=== PATIENT | female | born 1990 | race Caucasian/White ===

== ENCOUNTER 2019-06-21 17:57 | Emergency (ER) | payer OTHER ==
[~2019-06-21] VITALS: Ht 177.8 cm; Wt 83.9 kg
--- OUTSIDE RECORDS SUMMARY | ~2019-06-21 | XMS | Clinical Summary ---
Demographics + + + | Address | [address] | | | [place] [address] | + + + | Home Phone | | + + + | Preferred Language | Unknown | + + + | Marital Status | Unknown | + + + | Mu-Ism Affiliation | Unknown | + + + | Race | Unknown | + + + | Ethnic Group | Unknown | + + + Author + + + | Author | [facility] | | | and [place] | + + + | Organization | [facility] | | | and [place] | + + + | Address | Unknown | + + + | Phone | Unavailable | + + + Support + + +---------+ + | Name | Relationship | Address | Phone | + + +---------+ + | DanielsCarolyn | ECON | Unknown | | + + +---------+ + Care Team Providers + +------+ + | Care Laundry Assistant Name | Role | Phone | + +------+ + | Pcp, Prov Inactive | PCP | | + +------+ + Allergies No Known Allergies Medications + + + +---------+------+------+-------+ | Medication | Sig | Dispensed | Refills | Star | End | Statu | | | | | | t | Date | s | | | | | | Date | | | + + + +---------+------+------+-------+ | | Take 1 tablet by | 30 | 0 | 03/2 | | Activ | | doxylamine-pyridoxin | mouth nightly. | tablet | | 3/20 | | e | | e (BONJESTA) 20-20 | | | | 19 | | | | mg per ER tablet | | | | | | | + + + +---------+------+------+-------+ | vitamin | Take 1 capsule by | 30 | 0 | 03/2 | | Activ | | (CITRANATAL HARMONY) | mouth Daily. | capsule | | 3/20 | | e | | 27-1-260 mg capsule | | | | 19 | | | + + + +---------+------+------+-------+ Active Problems + + + | Problem | Noted Date | + + + | Chronic back pain thoracic and lumbar | 02/16/2015 | + + + | Paresthesias | 02/16/2015 | + + + | Myalgia | 02/16/2015 | + + + | Chronic narcotic dependence | 02/16/2015 | + + + + + + | | Comments | + + + | Yes | | + + + Family History + + +------+ + | Medical History | Relation | Name | Comments | + + +------+ + | Diabetes | Mother | | | + + +------+ + | Heart disease | Mother | | | + + +------+ + | High blood pressure | Mother | | | + + +------+ + | Stroke | Mother | | | + + +------+ + + +------+--------+ + | Relation | Name | Status | Comments | + +------+--------+ + | Mother | | | | + +------+--------+ + Social History + + + +--------+ + | Tobacco Use | Types | Packs/Day | Years | Date | | | | | Used | | + + + +--------+ + | Former Smoker | Cigarettes | 0.5 | 7 | Started: 09/22/2012 | + + + +--------+ + + +---+---+---+ | Smokeless Tobacco: | | | | | Never Used | | | | + +---+---+---+ + + +---------+ + | Alcohol Use | Drinks/We | oz/Week | Comments | | | ek | | | + + +---------+ + | No | | | | + + +---------+ + + + + | | Comments | + + + | Yes | | + + + + + + | Sex Assigned at | Date Recorded | | | | + + + | Not on file | | + + + + + + + | Job Start Date | Occupation | Industry | + + + + | Not on file | Not on file | Not on file | + + + + + + + + | Travel History | Travel Start | Travel End | + + + + + + | No recent travel history available. | + + Last Filed Vital Signs + + + + | Vital Sign | Reading | Time Taken | + + + + | Blood Pressure | 131/80 | 12/12/2018 0057 PDT | + + + + | Pulse | 87 | 12/12/2018105 PDT | + + + + | Temperature | 36.4 C (97.6 F) | 12/12/201856 PDT | + + + + | Respiratory Rate | 16 | 12/12/201856 PDT | + + + + | Oxygen Saturation | 100% | 12/12/2018105 PDT | + + + + | Inhaled Oxygen | - | - | | Concentration | | | + + + + | Weight | 65.8 kg (145 lb) | 12/12/201856 PDT | + + + + | Height | 177.8 cm (5' 10") | 12/12/201856 PDT | + + + + | Body Mass Index | 20.81 | 12/12/201856 PDT | + + + + Plan of Treatment + + + + + | Health Maintenance | Due Date | Last Done | Comments | + + + + + | Vaccine: | | | | | Dtap/Tdap/Td (1 - | 1 | | | | Tdap) | | | | + + + + + | Cervical Cancer | | | | | Screening (Pap) | 3 | | | + + + + + | Vaccine: Influenza | | | | | (#1) | 9 | | | + + + + + Results Not on filefrom Last 3 Months Insurance + +--------+ +--------+ +---------+--------+ | Payer | Benefi | Subscriber | Effect | Phone | Address | Type | | | t Plan | ID | selene | | | | | | / | | Dates | | | | | | Group | | | | | | + +--------+ +--------+ +---------+--------+ | [employer] | [employer] | [id number] | | [phone] | | Medica | | MEDICAID HMO | HEALTH | | 015-Pr | 1 | | id | | | MDCD | | esent | | | | | | [place] | | | | | | + +--------+ +--------+ +---------+--------+ + +--------+ +--------+ + + | Guarantor Name | Accoun | Relation to | Date | Phone | Billing Address | | | t Type | Patient | of | | | | | | | | | | + +--------+ +--------+ + + | Kalie Guevara | Person | Self [birth year] | [address] | | | [place] | | 1991 | [phone] | [place], [place] | | | david | | | [address] (Home) | [address] | + +--------+ +--------+ + + Advance Directives Patient has advance care planning documents on file. For more information, please contact:[facility] [place] [address]
--- OUTSIDE RECORDS SUMMARY | ~2019-06-21 | XMS | Clinical Summary ---
Demographics + + + | Address | [address] | | | [place] [address] | + + + | Home Phone | | + + + | Preferred Language | Unknown | + + + | Marital Status | Unknown | + + + | Pentecostalism Affiliation | Unknown | + + + | Race | Unknown | + + + | Ethnic Group | Unknown | + + + Author + + + | Author | [facility] | | | and [place] | + + + | Organization | [facility] | | | and [...] Team Providers + +------+ + | Care Head Knitting Machine Fixer Name | Role | Phone | + [...] | [employer] | MOD[employer] | [id number] | | [phone] | | Medica | [...] Person | Self | [birth year] | [address] | | | [place] | | 1991 | [phone] | [place], [place] | | | david | | | 3 (Home) | [address] | + +--------+ +--------+ + + Advance Directives Patient has advance care planning documents on file. For more information, please contact:[facility] [place] [address]
[~2019-06-21 17:57] MED LIST: NAPROXEN500 MG PO; TRAMADOL HCL50 MG PO
== END 2019-06-21 19:46 | disposition home or self-care (01) ==
LOC: ED 17:57
DX: L08.9 Local infection of the skin and subcutaneous tissue, unspecified (principal); Z79.899 Other long term (current) drug therapy
CPT/HCPCS: 99283

== ENCOUNTER 2019-07-20 14:06 | Inpatient (IN) | payer OTHER ==
--- NOTE | ~2019-07-20 | OR ---
[facility] [address] [place], [place] [address] Draft DATE OF OPERATION: 07/22/2019 SURGEON: Jason Jurado MD HAND STRIPER: Burton. PREOPERATIVE DIAGNOSIS: intolerance to labor. POSTOPERATIVE DIAGNOSIS: intolerance to labor, delivered. PROCEDURE: Primary section with low segment transverse uterine incision. ANESTHESIA: Epidural. ESTIMATED BLOOD LOSS: 700 mL. DRAINS: Fermin catheter. INDICATIONS AND FINDINGS: The patient is a 28-year-old female, 1, para 0, admitted at 39 and 2/7th weeks for elective induction. She had a prolonged slow labor. She did have a total of three episodes of prolonged deceleration interspersed with good reactivity, variability, and accelerations. However, with the 3rd episode, it was felt that the baby should be delivered immediately and was recommended. She was consented, taken to the operating room. She did have heart tones recovered prior to beginning the surgery. She was able to have her surgery with the epidural as it did have time to set up prior to the . She was delivered of a little boy via lower segment transverse uterine incision from the ROT position with Apgars of 9 and 9 and weight of 8 pounds 15 ounces. There was a true knot in the cord. The uterus, tubes, ovaries, and placenta otherwise appeared normal. There was light meconium at delivery. DESCRIPTION OF PROCEDURE: The patient was prepped and draped in the supine position. A Pfannenstiel skin incision PATIENT NAME: CHILO CANNON OPERATIVE REPORT DATE OF : [birth year] REPORT #: [id number] PHYSICIAN: JASON JURADO MD PCP: JASON JURADO MD REPORT IS CONFIDENTIAL AND NOT TO BE RELEASED WITHOUT AUTHORIZATION [facility] [address] [place], [place] [address] Draft was made and the incision was extended down through the fascia. The incision was extended laterally. The inferior and superior fascial flaps were then created. The muscles were bluntly divided and the peritoneum entered bluntly and the incision extended bluntly. The Cody retractor was placed. The uterine incision was made at the upper aspect of the peritoneal reflection with delivery of the baby with the above findings and handed out to the pediatric staff in attendance. Cord blood was obtained as well as the cord for gases. The placenta was expressed. The uterus explored with a lap tape assuring no remaining fragments. The edges of the incision were identified and the uterus closed in 2 layers. The first layer was a running locking stitch and the second was a vertical imbricating stitch of #0 Monocryl. Retractors removed the peritoneum identified. Good hemostasis was noted at the incision. Then a cell graft was then laid over the lower segment to aid in healing. The peritoneum was then closed with a running suture of 3-0 Vicryl. The muscles were brought together with interrupted sutures of 0 Vicryl. Bleeding points were controlled with cautery. There was a webbing seamer pound net at the upper left side of the fascia and this required a [id number]-xi-behuk suture with 0 Vicryl as well for control of bleeding. Following this, this layer was irrigated and inspected, and good hemostasis was noted. ACell powder was sprinkled over the muscles to aid in healing. The fascia was then closed from each angle to the midline with a running suture of 0 Vicryl. The subcu area was irrigated and bleeding points controlled with cautery. The deep space was reapproximated with interrupted sutures of 3-0 Vicryl. The skin was closed with natalie. All sponge and needle counts were correct. She tolerated the procedure well and was taken to the recovery room in good condition. MD NAYELY Pittman/JUAREZ /[id number] cc: Dr. Burton Copies: ~ PATIENT NAME: CHILO CANNON OPERATIVE REPORT DATE OF : [birth year] REPORT #: [id number] PHYSICIAN: JASON JURADO MD PCP: JASON JURADO MD REPORT IS CONFIDENTIAL AND NOT TO BE RELEASED WITHOUT AUTHORIZATION
--- NOTE | 2019-07-21 11:23 | PR ---
[facility] [address] [facility] [place], [place] [address] Signed Progress Notes IP Datetime Report Generated by CPN: 07/21/2019 11:23 PROGRESS NOTES: [id number] Impression: Normal progression of labor Procedures: Artificial ROM; Sterile Vag Exam Plan: Continue present management Informed Consent Obtain: Vaginal Delivery; Induction of Labor; Risks, Benefits and Alternatives Discussed VITAL SIGNS: [id number] Vital Signs: Reviewed VS Notable Details: intermittent mild HTN EXAM: [id number] Dilatation: 3.0 Effacement: 75 Station: -2 Uterine Contractions: q 1 to 5 min MEMBRANES: [id number] Pooling: Negative Membrane Status: Intact ROM Note: AROM with large amount of clear fluid seen Comments: Progressing. Will continue. Fetus A: [id number] FHR Baseline: 140 Variability: Moderate 6-25bpm Accelerations: 15X15 Decelerations: None FHR Category: Category I Presentation: Vertex Comments on Fetus A: No evidence of metabolic acidosis Fetus B: [id number] Signing Physician: Alyson Jurado MD Copies: ~ *Electronically Signed* 07/21/19 1123 ALYSON JURADO MD PATIENT NAME: CHILO CANNON PROGRESS NOTE DATE OF : [birth year] PHYSICIAN: ALYSON JURADO MD RPT #: [id number] REPORT IS CONFIDENTIAL AND NOT TO BE RELEASED WITHOUT AUTHORIZATION
--- NOTE | 2019-07-21 15:37 | PR ---
[facility] [address] [place], [place] [address] Signed Progress Notes IP Datetime Report Generated by CPN: 07/21/2019 15:37 PROGRESS NOTES: [id number] Impression: Slow Progression of Labor Procedures: Intrauterine Pressure Catheter; Sterile Vag Exam Plan: Continue present management Informed Consent Obtain: Vaginal Delivery; Induction of Labor; Risks, Benefits and Alternatives Discussed VITAL SIGNS: [id number] Vital Signs: Reviewed VS Notable Details: intermittent mild HTN EXAM: [id number] Dilatation: 3.5 Effacement: 80 Station: -2 Uterine Contractions: q 2 to 4 min MEMBRANES: [id number] Pooling: Negative Membrane Status: Intact ROM Note: AROM with large amount of clear fluid seen Comments: Slow progress. Will place IUPC as suspect contractions are inadequate and pit augment may be needed. Fetus A: [id number] FHR Baseline: 140 Variability: Moderate 6-25bpm Accelerations: 15X15 Decelerations: None FHR Category: Category I Presentation: Vertex Comments on Fetus A: No evidence of metabolic acidosis Fetus B: [id number] Signing Physician: Alyson Jurado MD Copies: ~ *Electronically Signed* 07/21/19 1537 ALYSON JURADO MD PATIENT NAME: CHILO CANNON PROGRESS NOTE DATE OF : [birth year] PHYSICIAN: ALYSON JURADO MD RPT #: [id number] REPORT IS CONFIDENTIAL AND NOT TO BE RELEASED WITHOUT AUTHORIZATION
--- NOTE | 2019-07-21 22:50 | PR ---
[facility] [address] [place], [place] [address] Signed Progress Notes IP Datetime Report Generated by CPN: 07/21/2019 22:50 PROGRESS NOTES: [id number] Impression: Slow Progression of Labor Procedures: Scalp Electrode; Sterile Vag Exam Plan: Continue present management Informed Consent Obtain: Vaginal Delivery; Induction of Labor; Risks, Benefits and Alternatives Discussed VITAL SIGNS: [id number] Vital Signs: Reviewed; Within Normal Limits VS Notable Details: intermittent mild HTN EXAM: [id number] Dilatation: 5.0 Effacement: 100 Station: -2 Uterine Contractions: q 2 to 4 min MEMBRANES: [id number] Pooling: Negative Membrane Status: Intact ROM Note: AROM with large amount of clear fluid seen Comments: Some progression in labor but recent prolonged decel. Will allow baby to continue to recover and will restart pit in approx 15 min assuming continued reassuring status. Fetus A: [id number] FHR Baseline: 120 Variability: Moderate 6-25bpm Accelerations: 10X10 Decelerations: Prolonged FHR Category: Category II Presentation: Vertex Comments on Fetus A: recent prolonged decel but now appears to be recovering Fetus B: [id number] Signing Physician: Alyson Jurado MD Copies: ~ *Electronically Signed* 07/21/19 1381 ALYSON JURADO MD PATIENT NAME: CHILO CANNON PROGRESS NOTE DATE OF : [birth year] PHYSICIAN: ALYSON JURADO MD RPT #: [id number] REPORT IS CONFIDENTIAL AND NOT TO BE RELEASED WITHOUT AUTHORIZATION
--- NOTE | 2019-07-22 01:42 | PR ---
[facility] [address] [place], [place] [address] Signed Progress Notes IP Datetime Report Generated by ERIKA: 07/22/2019 01:42 PROGRESS NOTES: [id number] Impression: Non-reassuring heart rate; Slow Progression of Labor Procedures: Sterile Vag Exam Plan: Continue present management Informed Consent Obtain: Vaginal Delivery; Induction of Labor; Risks, Benefits and Alternatives Discussed VITAL SIGNS: [id number] Vital Signs: Reviewed; Within Normal Limits VS Notable Details: intermittent mild HTN EXAM: [id number] Dilatation: 7.0 Effacement: 90 Station: -2 Uterine Contractions: q 3 to 4 min (off pit) MEMBRANES: [id number] Pooling: Negative Membrane Status: Intact ROM Note: AROM with large amount of clear fluid seen Comments: Progressing but now with 2nd prolonged decel. These have resolved with position changes, stopping pit, etc though this one took longer to recover than prior episode. Discussed C/S if this were to occur again. Pt requested epidural be turned down and this was done per her request though this is unrelated to her decels. She has been informed that this may allow her labor pain to recur. Fetus A: [id number] FHR Baseline: 115 Variability: Moderate 6-25bpm Accelerations: 15X15 Decelerations: Prolonged FHR Category: Category II Presentation: Vertex Comments on Fetus A: prolonged decel but resolving with changes in position, stopping pit. Will require continued close observation Fetus B: [id number] Signing Physician: Jason Jurado MD *Electronically Signed* 07/22/19 0142 JASON JURADO MD PATIENT NAME: CHILO CANNON PROGRESS NOTE DATE OF : [birth year] PHYSICIAN: JASON JURADO MD RPT #: [id number] REPORT IS CONFIDENTIAL AND NOT TO BE RELEASED WITHOUT AUTHORIZATION [address] [facility] [place], [place] [address] Signed Copies: ~ *Electronically Signed* 07/22/19 0142 JASON JURADO MD PATIENT NAME: CHILO CANNON PROGRESS NOTE DATE OF : [birth year] PHYSICIAN: JASON JURADO MD RPT #: [id number] REPORT IS CONFIDENTIAL AND NOT TO BE RELEASED WITHOUT AUTHORIZATION
--- NOTE | 2019-07-22 02:12 | PR ---
[facility] [address] [place], [place] [address] Signed Progress Notes IP Datetime Report Generated by CPN: 07/22/2019 02:12 PROGRESS NOTES: [id number] Impression: Reassuring heart rate Procedures: Sterile Vag Exam Plan: Continue present management Informed Consent Obtain: Vaginal Delivery; Induction of Labor; Risks, Benefits and Alternatives Discussed VITAL SIGNS: [id number] Vital Signs: Reviewed; Within Normal Limits VS Notable Details: intermittent mild HTN EXAM: [id number] Dilatation: 7.0 Effacement: 90 Station: -2 Uterine Contractions: q 3 to 4 min, mild MEMBRANES: [id number] Pooling: Negative Membrane Status: Intact ROM Note: AROM with large amount of clear fluid seen Comments: FHTs are reasssuring at this time. Will continue close observation. Fetus A: [id number] FHR Baseline: 130 Variability: Moderate 6-25bpm Accelerations: 15X15 Decelerations: None FHR Category: Category I Presentation: Vertex Comments on Fetus A: No evidence of metabolic acidosis at this time Fetus B: [id number] Signing Physician: Alyson Jurado MD Copies: ~ *Electronically Signed* 07/22/19 021 ALYSON JURADO MD PATIENT NAME: CHILO CANNON PROGRESS NOTE DATE OF : [birth year] PHYSICIAN: ALYSON JURADO MD RPT #: [id number] REPORT IS CONFIDENTIAL AND NOT TO BE RELEASED WITHOUT AUTHORIZATION
--- NOTE | 2019-07-22 09:22 | PR ---
[facility] [address] [facility] [place] [address] Signed Progress Notes IP Datetime Report Generated by CPN: 07/22/2019 09:22 PROGRESS NOTES: [id number] Impression: Non-reassuring heart rate Procedures: Sterile Vag Exam Plan: Deliver- Section Informed Consent Obtain: Section Delivery VITAL SIGNS: [id number] Vital Signs: Reviewed; Within Normal Limits VS Notable Details: intermittent mild HTN EXAM: [id number] Dilatation: 9.0 Effacement: 90 Station: -1 Uterine Contractions: q 3 to 4 min, mild MEMBRANES: [id number] Pooling: Negative Membrane Status: Intact ROM Note: AROM with large amount of clear fluid seen Comments: LE secondary to pt status. Recurrent prolonged decel. Discussed with pt and recommend emergency C/S. Will move to [place] now and deliver william. Fetus A: [id number] FHR Baseline: 130 Variability: Moderate 6-25bpm Accelerations: 15X15 Decelerations: Prolonged FHR Category: Category II Presentation: Vertex Comments on Fetus A: recurrent prolonged decel Fetus B: [id number] Signing Physician: Alyson Jurado MD Copies: ~ *Electronically Signed* 07/22/19921 ALYSON JURADO MD PATIENT NAME: CHILO CANNON PROGRESS NOTE DATE OF : [birth year] PHYSICIAN: ALYSON JURADO MD RPT #: [id number] REPORT IS CONFIDENTIAL AND NOT TO BE RELEASED WITHOUT AUTHORIZATION
--- NOTE | 2019-07-22 09:24 | NUR ---
07/22/19 0924 Elizbaeth Kruger 0974-PATIENT ARRIVED TO ROOM 106 PACU AWAKE ON RA. RR EVEN.SR DENIES PAIN REPORTS A LITTLE NAUSEA BUT GETTING BETTER. FUNDUS MIDLINE FIRM LIGHT RUBRA DRAINAGE ON ANNIA PAD. IV TO RIGHT ARM CDI INFUSING WITH 20 PITOCIN LR. ORDER TO GET PORTABLE ABDOMINAL XRAY
--- NOTE | 2019-07-23 08:15 | PR ---
[facility] [address] [facility] [place], [place] [address] Signed PP Progress Notes Datetime Report Generated by ERIKA: 07/23/2019 08:15 SUBJECTIVE: [id number] Pain: Within normal limits Nausea/Vomiting: Denies Flatus: No Vital Signs: [id number] Vital Signs: Reviewed; Within Normal Limits EXAM: [id number] Cardiovascular: Normal Respiratory: Normal Abdomen/Uterus: Abnormal Lochia: Normal Vulva/Perineum: Not Done Breasts: Not Done CVA Tenderness: Not Done Extremities: Normal Incision: Normal Progress: Normal Exam Comments: Abdomen with active BS. Fundus firm, NT @ U-1. H/H 9.8/28.5, WBC 11.9, plat 226k IMPRESSION/PLAN/PROCEDURES: [id number] Impression: Normal progression Other Plans: ambulate, shower Procedures: Rhogam Progress Notes: Doing well. Will increase activity. Signing Physician: Alyson Jurado MD Copies: ~ *Electronically Signed* 07/23/19 0815 ALYSON JURADO MD PATIENT NAME: CHILO CANNON PROGRESS NOTE DATE OF : [birth year] PHYSICIAN: ALYSON JURADO MD RPT #: [id number] REPORT IS CONFIDENTIAL AND NOT TO BE RELEASED WITHOUT AUTHORIZATION
--- NOTE | 2019-07-24 06:16 | EKG ---
[facility] [address] [facility] [place], [place] [address] Signed Normal sinus rhythm Cannot rule out Anterior infarct , age undetermined Abnormal ECG No previous ECGs available Confirmed by MARGARETH REBOLLEDO MD ([id number]) on 07/24/2019 6:15:49 AM Electronically Signed By: MARGARETH REBOLLEDO MD 07/24/19 0616 PATIENT NAME: CHILO CANNON Electrocardiogram DATE OF : [birth year] PHYSICIAN: MARGARETH REBOLLEDO MD REPORT #: [id number] REPORT IS CONFIDENTIAL AND NOT TO BE RELEASED WITHOUT AUTHORIZATION
--- NOTE | 2019-07-24 09:06 | PR ---
[facility] [address] [place], [place] [address] Signed PP Progress Notes Datetime Report Generated by CPN: 07/24/2019 09:06 SUBJECTIVE: [id number] Pain: Within normal limits Pain Comments: taking quite a bit of Dilaudid Nausea/Vomiting: Denies Flatus: No Vital Signs: [id number] Vital Signs: Reviewed; Within Normal Limits EXAM: [id number] Cardiovascular: Not Done Respiratory: Not Done Abdomen/Uterus: Abnormal Lochia: Normal Vulva/Perineum: Not Done Breasts: Not Done CVA Tenderness: Not Done Extremities: Normal Incision: Normal Progress: Normal Exam Comments: Abdomen with active BS. Fundus firm, NT @ U-1. IMPRESSION/PLAN/PROCEDURES: [id number] Impression: Normal progression; Pain Other Impression: taking large amounts of narcotics and will need to wean Other Plans: ambulate, heat to abdomen, decrease narcotics Procedures: Rhogam Progress Notes: Overall doing well but still taking quite a bit of Dilaudid. She has not passed gas and this is likely contributing to her pain. Narcotics are not effective for this and she will need to increase ambulation as well as clear liquids. Signing Physician: Alyson Jurado MD Copies: ~ *Electronically Signed* 07/24/19905 ALYSON JURADO MD PATIENT NAME: CHILO CANNON PROGRESS NOTE DATE OF : [birth year] PHYSICIAN: ALYSON JURADO MD RPT #: [id number] REPORT IS CONFIDENTIAL AND NOT TO BE RELEASED WITHOUT AUTHORIZATION
--- NOTE | 2019-07-25 09:49 | PR ---
[facility] [address] [facility] [place], [place] [address] Signed PP Progress Notes Datetime Report Generated by CPN: 07/25/2019 09:49 SUBJECTIVE: [id number] Pain: Within normal limits Pain Comments: taking quite a bit of Dilaudid Nausea/Vomiting: Denies Flatus: Yes Vital Signs: [id number] Vital Signs: Reviewed; Within Normal Limits EXAM: [id number] Cardiovascular: Not Done Respiratory: Not Done Abdomen/Uterus: Abnormal Lochia: Normal Vulva/Perineum: Not Done Breasts: Not Done CVA Tenderness: Not Done Extremities: Normal Incision: Normal Progress: Normal Exam Comments: Abdomen with active BS. Fundus firm, NT @ U-1. IMPRESSION/PLAN/PROCEDURES: [id number] Impression: Normal progression Other Impression: taking large amounts of narcotics and will need to wean Plan: Remove natalie; Discharge Other Plans: ambulate, heat to abdomen, decrease narcotics Procedures: Rhogam Progress Notes: Doing well. She is ready for D/C. Signing Physician: Alyson Jurado MD Copies: ~ *Electronically Signed* 07/25/19 0949 ALYSON JURADO MD PATIENT NAME: CHILO CANNON PROGRESS NOTE DATE OF : [birth year] PHYSICIAN: ALYSON JURADO MD RPT #: [id number] REPORT IS CONFIDENTIAL AND NOT TO BE RELEASED WITHOUT AUTHORIZATION
== END 2019-07-25 13:10 | disposition home or self-care (01) | DRG 788 ==
LOC: FBC 07-21 00:13
PROVIDERS: ADMIT Obstetrics & Gynecology
PROC: 3E0P7VZ Introduction of Hormone into Female Reproductive, Via Natural or Artificial Opening (ICD-10-PCS; 2019-07-21)
PROC: 10907ZC Drainage of Amniotic Fluid, Therapeutic from Products of Conception, Via Natural or Artificial Opening (ICD-10-PCS; 2019-07-21)
PROC: 10H07YZ Insertion of Other Device into Products of Conception, Via Natural or Artificial Opening (ICD-10-PCS; 2019-07-21)
PROC: 00HU33Z Insertion of Infusion Device into Spinal Canal, Percutaneous Approach (ICD-10-PCS; 2019-07-21)
PROC: 3E0R3BZ Introduction of Anesthetic Agent into Spinal Canal, Percutaneous Approach (ICD-10-PCS; 2019-07-21)
PROC: 10D00Z1 Extraction of Products of Conception, Low, Open Approach (ICD-10-PCS; principal; 2019-07-22 08:30)
PROC: 3E0234Z Introduction of Serum, Toxoid and Vaccine into Muscle, Percutaneous Approach (ICD-10-PCS; 2019-07-25)
DX: O76 Abnormality in fetal heart rate and rhythm complicating labor and delivery (principal); O99.824 Streptococcus B carrier state complicating childbirth; Z3A.39 39 weeks gestation of pregnancy; Z37.0 Single live birth; O69.2XX0 Labor and delivery complicated by other cord entanglement, with compression, not applicable or unspecified; O99.334 Smoking (tobacco) complicating childbirth; F17.210 Nicotine dependence, cigarettes, uncomplicated; O77.0 Labor and delivery complicated by meconium in amniotic fluid; Z79.899 Other long term (current) drug therapy; O32.2XX0 Maternal care for transverse and oblique lie, not applicable or unspecified; O26.893 Other specified pregnancy related conditions, third trimester; Z67.11 Type A blood, Rh negative; O99.344 Other mental disorders complicating childbirth; F41.9 Anxiety disorder, unspecified
CPT/HCPCS: 01961; 36415; 74018; 82803; 83030; 85027; 86850; 86870; 86900; 86901; 93005; 93010; A9270; J1100; J1885; J2270; J2274; J2370; J2405; J2540; J2590; J2790; J2795; J3010; J7060; J7121

== ENCOUNTER 2024-03-31 05:48 | Day surgery (SDC) | payer OTHER ==
[2024-03-22 15:47] VITALS: BP 118/73
[~2024-03-31] VITALS: Ht 177.8 cm; Wt 68.2 kg
--- NOTE | ~2024-03-31 | OR ---
[facility] [address] [place], [place] [address] Draft DATE OF OPERATION: 03/31/2024 SURGEON: Alyson Jurado MD PREOPERATIVE DIAGNOSES: Adenocarcinoma in situ. POSTOPERATIVE DIAGNOSIS: Adenocarcinoma in situ, pending pathology. PROCEDURE: Cone biopsy. ANESTHESIA: MAC. ESTIMATED BLOOD LOSS: 330 mL. DRAINS: None. INDICATIONS AND FINDINGS: The patient is a 33-year-old female who had an abnormal Pap smear with positive HPV 16. Biopsies were done in the office and these were consistent with adenocarcinoma in situ. She was counseled and the decision was made to proceed with cone biopsy to evaluate for possible invasive disease. At the time of surgery, her cervix appeared completely normal. DESCRIPTION OF PROCEDURE: The patient was prepped and draped in the dorsal lithotomy position. An open-sided speculum was placed and the anterior lip of the cervix was grasped with a single-tooth tenaculum. Stay sutures of 0 chromic were placed at 3 and 9 o'clock. Following this, the knife was used to circumscribe the narrow deep cone starting at 3 o'clock and bringing it around. The specimen was removed. A small piece at 12 o'clock came off and this was separately sent. The remainder of the cone was marked at 6 o'clock. Following this, the base of the cone was treated with cautery. However, there was minimal change in her bleeding. ECC was then done with a small amount of tissue found. Because of the ongoing bleeding, a blanket stitch was placed circumferentially using a 0 chromic surrounding the external os. Again, this did not seem to improve the bleeding. PATIENT NAME: CHILO CANNON OPERATIVE REPORT DATE OF : [birth year] REPORT #: [id number] PHYSICIAN: ALYSON JURADO MD PCP: CAITLIN HOGAN NP REPORT IS CONFIDENTIAL AND NOT TO BE RELEASED WITHOUT AUTHORIZATION [facility] [address] [place], [place] [address] Draft Additional sutures were placed at 12, 3, 9, and 6 o'clock with a 0 chromic again with minimal change. This did not improve the hemostasis despite ongoing pressure. Because of this, re-excision was done, which was wider and shallower to allow access to the deeper portion of the cone and to control the bleeding. This was circumferentially excised and remarked at 12. The base of the cone was then treated with the cautery. Much improved hemostasis was noted with just a single area at 5 o'clock, which required a suture of the 0 chromic. Following this, the base appeared hemostatic. Monsel's solution was placed in this area. Following this, because of the difficulty with hemostasis, Tisseel was sprayed over the cervix. Following this, there was no evidence of any ongoing bleeding. The instruments removed from the vagina and the patient was taken to the recovery room in good condition. All sponge and needle counts were correct. MD NAYELY Pittman/JUAREZ /[id number] Copies: ~ PATIENT NAME: KASSANDRACHILOCARLYLE GAMA OPERATIVE REPORT DATE OF : [birth year] REPORT #: [id number] PHYSICIAN: ALYSON JURADO MD PCP: CAITLIN HOGAN NP REPORT IS CONFIDENTIAL AND NOT TO BE RELEASED WITHOUT AUTHORIZATION
[~2024-03-31 05:48] MED LIST changes: +BUPRENORPHINE HC2 MG SL; +IRON325 M1 PO; +LACTATED RINGER'S 1,000 ML IV SCH; +PRENATA CHEWAB1 EACH PO
[2024-03-31 06:07] VITALS: BP 126/82
[2024-03-31] MEDS ORDERED: dexmedeTOMIDine HCl 200 MCG/2 ML VIAL ONE (06:56)
[2024-03-31] MEDS ORDERED: KETOROLAC TROMETHAMINE 30 MG/ML VIAL ONE (06:56)
[2024-03-31] MEDS ORDERED: LIDOCAINE HCL 2% 5 ML SDV ONE (06:56)
[2024-03-31] MEDS ORDERED: ACETAMINOPHEN 1,000 MG/100 ML VIAL ONE (06:56)
[2024-03-31] MEDS ORDERED: propofoL 200 MG/20 ML VIAL ONE ×3 (06:56→08:21)
[2024-03-31] MEDS ORDERED: LIDOCAINE HCL 1% 5 ML SDV INJ ONE (07:00)
[2024-03-31] MEDS ORDERED: IBLOOD GLUCOSE TEST STRIP 1 EA TEST VI PRN (07:00)
[2024-03-31] MEDS ORDERED: FAMOTIDINE 20 MG/ 2 ML VIAL IV SCH (07:00)
[2024-03-31] MEDS ORDERED: METOCLOPRAMIDE HCL 10 MG/2 ML SDV IV SCH (07:00)
[2024-03-31] MEDS ORDERED: DEXAMETHASONE SOD PHOS 4 MG/ML VIAL ONE (07:18)
[2024-03-31] MEDS ORDERED: ondansetron HCL 4 MG/2 ML VIAL ONE (07:18)
--- NOTE | 2024-03-31 08:37 | NUR ---
03/31/24 0837 Whitley Farrar PATIENT OPENS HER EYES AND ASKS FOR WATER. PATIENT QUESTIONED WHETHER SHE IS HAVING NAUSEA. SHE REPORTS "I DON'T KNOW YET." HOB IS ELEVATED TO 90 DEGREES.
[2024-03-31] MEDS ORDERED: fentaNYL citrate 50 MCG/ML SDV ONE (08:43)
[2024-03-31] MEDS ORDERED: LACTATED RINGER'S 1,000 ML IV SCH (08:45)
[2024-03-31] MEDS ORDERED: FAMOTIDINE 20 MG TAB PO PRN (08:45)
[2024-03-31] MEDS ORDERED: NALOXONE HCL 0.4 MG SYR IV PRN (08:45)
[2024-03-31] MEDS ORDERED: METOCLOPRAMIDE HCL 10 MG/2 ML SDV IV PRN (08:45)
[2024-03-31] MEDS ORDERED: MAGNESIUM HYDROXIDE/AL HYDROX 30 ML CUP PO PRN (08:45)
[2024-03-31] MEDS ORDERED: ondansetron HCL 4 MG TAB PO PRN (08:45)
[2024-03-31] MEDS ORDERED: PROCHLORPERAZINE EDISYLATE 10 MG/2 ML VIAL IV PRN (08:45)
[2024-03-31] MEDS ORDERED: ondansetron HCL 4 MG/2 ML VIAL IV PRN (08:45)
[2024-03-31] MEDS ORDERED: HYDROmorphone HCL 1 MG/ML SYR ONE (08:56)
--- NOTE | 2024-03-31 09:08 | NUR ---
0840: ADAL MCCLELLAND CRNA, ADMINISTERS FENTANYL FOR 7/10 VAGINAL PAIN. 0850: PATIENT IS ASKING FOR EYE DROPS. NS FLUSH IS USED TO MOISTEN PATIENT'S EYES AND SHE REPORTS "THAT'S BETTER." 0852: WARM PACK APPLIED TO PATIENT'S LOW ABDOMEN. 0854: WARM PACK APPLIED TO PATIENT'S PERINEUM. 0900: ADAL MCCLELLAND CRNA, ADMINISTERS DILAUDID FOR 8/10 VAGINAL PAIN. 0910: PATIENT CONTINUES TO REPORT 8/10 PAIN. HOB IS ELEVATED PER PATIENT REQUEST. DR JARRETT NOTIFIED OF PATIENT'S UNCONTROLLED PAIN. VERBAL ORDER RECEIVED.
[2024-03-31] MEDS ORDERED: ACETAMINOPHEN 500 MG TAB PO ONE (09:15)
[2024-03-31] MEDS ORDERED: OXYCODONE HCL 5 MG TAB PO ONE (09:15)
[2024-03-31] MEDS ORDERED: OXYCODONE HCL 10 MG TAB PO ONE (09:15)
[2024-03-31 10:00] VITALS: BP 112/69
[2024-03-31] MEDS ORDERED: IBUPROFEN 800 MG TAB PO SCH (14:00)
== END 2024-03-31 10:07 | disposition home or self-care (01) ==
LOC: DS 05:48 → OPS 05:48 → DS 07:30 → OPS 07:30
PROVIDERS: ATTEND Obstetrics & Gynecology
PROC: 0UBC7ZX Excision of Cervix, Via Natural or Artificial Opening, Diagnostic (ICD-10-PCS; principal; 2024-03-31 07:30)
DX: D06.9 Carcinoma in situ of cervix, unspecified (principal); Z88.0 Allergy status to penicillin; Z91.018 Allergy to other foods
CPT/HCPCS: 00940; 88305; 88307; A9270; J0131; J1100; J1885; J2001; J2405; J2704; J2765; J7121